=== PATIENT | female | born 1965 | race Caucasian/White ===

== ENCOUNTER → 2020-05-06 | Outpatient (CLI) | payer OTHER ==
[2015-12-28 20:36] VITALS: BP 159/81
--- NOTE | 2020-05-06 19:30 | KCIC ---
BILATERAL SCREENING MAMMOGRAM History: Routine screening. Comparison: Bilateral mammogram April 25, 2015. Technique: Routine bilateral digital mammogram views were obtained. Findings: Breast Tissue Density B : There are scattered areas of fibroglandular density. Faint arterial calcifications are noted bilaterally. There are no dominant masses, suspicious microcalcifications, or architectural distortion. IMPRESSION: No mammographic evidence of malignancy. Recommend routine screening. BI-RADS category 2: Benign findings. The images were reviewed with computer aided detection. Patient information is entered into the reminder system with a target due date for the next screening mammogram. Mammography is the most sensitive method for finding small breast cancers, but it does not detect them all and is not a substitute for careful clinical examination. A negative mammogram does not negate a clinically suspicious finding and should not result in delay in biopsying a clinically suspicious abnormality. "Our facility is accredited by the [employer] Mammography Program." Electronically signed by: Tucker Moreno MD (05/06/2020 7:27 PM) [email or web address]
== END ==
LOC: KCIC MAMMO 12:37
PROVIDERS: ATTEND Internal Medicine
DX: Z12.31 Encounter for screening mammogram for malignant neoplasm of breast (principal)
CPT/HCPCS: 77067

== ENCOUNTER → 2021-03-03 | Outpatient (CLI) | payer OTHER ==
[2015-12-28 20:36] VITALS: BP 159/81
--- NOTE | 2021-03-04 10:13 | RAD ---
EXAM: 2 views of the left foot DATE: 03/03/2021 2:48 PM INDICATION: Reason: FOREIGN BODY, GLASS / Spl. 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 5 mm radiopaque density in the soft tissues overly ing the amputation likely foreign body, such as clinically described history of glass. 8 mm linear de nsity plantar left midfoot also likely retained foreign body. Small plantar calcaneal enthesophyte. No acute fracture or dislocation. Electronically signed by: Case Khan MD (03/04/2021 10:11 AM) [email or web address]
== END ==
LOC: RAD 14:27
PROVIDERS: ATTEND Internal Medicine
DX: S90.852A Superficial foreign body, left foot, initial encounter (principal); M77.32 Calcaneal spur, left foot; X58.XXXA Exposure to other specified factors, initial encounter; Y93.89 Activity, other specified; Y92.89 Other specified places as the place of occurrence of the external cause; Y99.8 Other external cause status
CPT/HCPCS: 73620